=== PATIENT | female | born 1985 | race Caucasian/White ===

== ENCOUNTER 2021-08-15 19:59 | Outpatient (CLI) | payer OTHER ==
[2021-08-15] MEDS ORDERED: ADULT LOW DOSE81 M1 PO (20:15)
[2021-08-15] MEDS ORDERED: PRENATAL TABLE1 EAC3 PO (20:17)
[2021-08-15] MEDS ORDERED: VITAMIN C500 M6 PO (20:17)
[2021-08-15] MEDS ORDERED: [UNRECOGNIZED DRUG - OTHER] PO (20:19)
[2021-08-15] MEDS ORDERED: TYLENOL325 MG PO (20:20)
== END 2021-08-16 12:14 | disposition home or self-care (01) ==
LOC: OBS/DEL 19:59
PROVIDERS: ATTEND Specialist
DX: O98.513 Other viral diseases complicating pregnancy, third trimester (principal); O99.213 Obesity complicating pregnancy, third trimester; O99.343 Other mental disorders complicating pregnancy, third trimester; Z3A.33 33 weeks gestation of pregnancy; Z20.822 Contact with and (suspected) exposure to COVID-19; Z88.0 Allergy status to penicillin; Z88.2 Allergy status to sulfonamides; Z88.8 Allergy status to other drugs, medicaments and biological substances; B34.9 Viral infection, unspecified

== ENCOUNTER 2021-09-26 06:01 | Inpatient (IN) | payer OTHER ==
[~2021-09-26] VITALS: Ht 167.6 cm; Wt 131.5 kg
[~2021-09-26 06:01] MED LIST: ADULT LOW DOSE81 M1 PO; PRENATAL TABLE1 EAC3 PO; TYLENOL325 MG PO; VITAMIN C500 M6 PO; [UNRECOGNIZED DRUG - OTHER] PO
[2021-09-26] MEDS ORDERED: IRON18 MG PO (07:30)
== END 2021-09-28 18:20 | disposition home or self-care (01) | DRG 807 ==
LOC: LDR 06:01 → OB/GYN 11:33
PROVIDERS: ADMIT Specialist; ATTEND Specialist
PROC: 10E0XZZ Delivery of Products of Conception, External Approach (ICD-10-PCS; principal; 2021-09-26)
PROC: 4A1HXCZ Monitoring of Products of Conception, Cardiac Rate, External Approach (ICD-10-PCS; 2021-09-26)
PROC: 0UQG7ZZ Repair Vagina, Via Natural or Artificial Opening (ICD-10-PCS; 2021-09-26)
DX: O70.0 First degree perineal laceration during delivery (principal); Z37.0 Single live birth; Z3A.39 39 weeks gestation of pregnancy; Z20.822 Contact with and (suspected) exposure to COVID-19

== ENCOUNTER 2021-10-12 20:24 | Inpatient (IN) | payer OTHER ==
[~2021-10-12] VITALS: Ht 167.6 cm; Wt 119.3 kg
[~2021-10-12 20:24] MED LIST changes: +IRON18 MG PO
[2021-10-12] MEDS ORDERED: ASPIRIN PO (21:14)
== END 2021-10-13 18:47 | disposition home or self-care (01) | DRG 776 ==
LOC: LDR 20:24
PROVIDERS: ADMIT Specialist; ATTEND Specialist
DX: O14.05 Mild to moderate pre-eclampsia, complicating the puerperium (principal); Z20.822 Contact with and (suspected) exposure to COVID-19